=== PATIENT | female | born 1945 | race Caucasian/White ===

== ENCOUNTER → 2016-11-12 | Outpatient (CLI) | payer MEDICARE ==
--- NOTE | 2016-11-13 13:50 | MM ---
Reason for exam: screening (asymptomatic). Last mammogram was performed 1 year ago. History: Patient is postmenopausal. Took estrogen for 18 years beginning at age 42. Physical Findings: A clinical breast exam by your physician is recommended on an annual basis and results should be correlated with mammographic findings. MG Screening Mammo w CAD Bilateral CC and MLO view(s) were taken. Prior study comparison: November 09, 2015, bilateral MG screening mammo w CAD. November 03, 2014, bilateral MG screening mammo w CAD. Finding: There are typically benign calcifications in the left breast. No significant changes in finding since November 09, 2015 and November 03, 2014. ASSESSMENT: Benign, BI-RAD 2 RECOMMENDATION: Routine screening mammogram of both breasts in 1 year.
== END | disposition home or self-care (01) ==
LOC: RADMAMWWP 11:00
PROVIDERS: ATTEND Internal Medicine
DX: Z12.31 Encounter for screening mammogram for malignant neoplasm of breast (principal)

== ENCOUNTER → 2017-06-24 | Outpatient (CLI) | payer MEDICARE ==
--- NOTE | 2017-06-24 12:17 | US ---
EXAMINATION TYPE: US venous doppler duplex LE LT DATE OF EXAM: 06/24/2017 12:08 PM COMPARISON: NONE CLINICAL HISTORY: LLE Swelling M79.89. Pt states left leg swelling SIDE PERFORMED: Left TECHNIQUE: The lower extremity deep venous system is examined utilizing real time linear array sonog esme with graded compression, doppler sonography and color-flow sonography. VESSELS IMAGED: External Iliac Vein (EIV) Common Femoral Vein Deep Femoral Vein Greater Saphenous Vein * Femoral Vein Popliteal Vein Small Saphenous Vein * Proximal Calf Veins (* superficial vessels) Grayscale, color doppler, spectral doppler imaging performed of the deep veins of the lower extremity . There is normal flow, compressibility, vascular waveforms. Results called to Nancy at Dr's office at time of exam IMPRESSION: Left Leg: Negative for DVT
== END | disposition home or self-care (01) ==
LOC: RADUSWWP 11:51
PROVIDERS: ATTEND Internal Medicine
DX: M79.89 Other specified soft tissue disorders (principal)

== ENCOUNTER → 2017-12-10 | Outpatient (CLI) | payer MEDICARE ==
--- NOTE | 2017-12-10 11:28 | BD ---
EXAMINATION TYPE: Axial Bone Density DATE OF EXAM: 12/10/2017 COMPARISON: 11/09/2015 CLINICAL HISTORY: M85.80 Disorder of bone Height: 65.5 IN Weight: 135 LBS FRAX RISK QUESTIONS: History of Fracture in Adulthood: RT FOOT FX AGE 64, RT SHOULDER AGE 64 Secondary Osteoporosis: 3. Menopause before 45: YES AGE 42 RISK FACTORS HISTORY OF: Family History of Osteoporosis: YES MOTHER Active: YES Postmenopausal woman: AGE 42 Take estrogen and/or progesterone medications: NOT NOW How long: TOOK HORMONES FROM AGE 42 - 60 MEDICATIONS: Additional Medications: CALCIUM, VIT D,BLOOD PRESSURE, ATORVASTATIN, EXAM MEASUREMENTS: Bone mineral densitometry was performed using the [employer] System. Bone mineral density as measured about the Lumbar spine is: ----- L1-L4(G/cm2): 1.49 T Score Values are as follows: ----- L2: -0.8 ----- L3: 1.0 ----- L4: 0.8 ----- L1-L4: -0.3 Bone mineral density has: Decreased -4.8% since study of: 11/09/2015 Bone mineral density about the R hip (g/cm2): 0.781 Bone mineral density about the L hip (g/cm2): 0.835 T Score values are as follows: -----R Neck: -1.9 -----L Neck: -1.5 -----R Total: -1.1 -----L Total: -0.2 Bone mineral density has: Decreased -0.4% since study of: 11/09/2015 IMPRESSION: Osteopenia about the right femur. NOTE: T-SCORE=SD OF THE YOUNG ADULT MEAN.
--- NOTE | 2017-12-11 13:46 | MM ---
Reason for exam: screening (asymptomatic). Last mammogram was performed 1 year and 1 month ago. History: Patient is postmenopausal. Took estrogen for 18 years beginning at age 42. Physical Findings: A clinical breast exam by your physician is recommended on an annual basis and results should be correlated with mammographic findings. MG Screening Mammo w CAD Bilateral CC and MLO view(s) were taken. Prior study comparison: November 12, 2016, bilateral MG screening mammo w CAD. November 09, 2015, bilateral MG screening mammo w CAD. The breast tissue is heterogeneously dense. This may lower the sensitivity of mammography. There is no discrete abnormality. No significant changes when compared with prior studies. ASSESSMENT: Negative, BI-RAD 1 RECOMMENDATION: Routine screening mammogram of both breasts in 1 year.
== END | disposition home or self-care (01) ==
LOC: RADMAMWWP 10:11
PROVIDERS: ATTEND Internal Medicine
DX: Z12.31 Encounter for screening mammogram for malignant neoplasm of breast (principal); M85.851 Other specified disorders of bone density and structure, right thigh
CPT/HCPCS: 77067; 77080

== ENCOUNTER → 2019-02-11 | Outpatient (CLI) | payer MEDICARE ==
--- NOTE | 2019-02-11 13:33 | MM ---
Reason for exam: screening (asymptomatic). Last mammogram was performed 1 year and 2 months ago. History: Patient is postmenopausal. Took estrogen for 18 years beginning at age 42. Physical Findings: A clinical breast exam by your physician is recommended on an annual basis and results should be correlated with mammographic findings. MG Screening Mammo w CAD Bilateral CC and MLO view(s) were taken. Prior study comparison: December 10, 2017, bilateral MG screening mammo w CAD. November 12, 2016, bilateral MG screening mammo w CAD. The breast tissue is heterogeneously dense. This may lower the sensitivity of mammography. There are benign appearing vascular calcifications bilaterally. There is no discrete abnormality. ASSESSMENT: Benign, BI-RAD 2 RECOMMENDATION: Routine screening mammogram of both breasts in 1 year.
== END ==
LOC: RADMAMWWP 08:16
PROVIDERS: ATTEND Internal Medicine
DX: Z12.31 Encounter for screening mammogram for malignant neoplasm of breast (principal)
CPT/HCPCS: 77067

== ENCOUNTER → 2019-09-09 | Outpatient (CLI) | payer MEDICARE ==
--- NOTE | 2019-09-09 13:43 | BD ---
EXAMINATION TYPE: Axial Bone Density DATE OF EXAM: 09/09/2019 COMPARISON: 12.10.2017 CLINICAL HISTORY: 74 YR OLD FEMALE.....ICD-10 CODE: M89.9 DISORDER OF BONE Height: 65.2 Weight: 133 FRAX RISK QUESTIONS: History of Fracture in Adulthood: YES Secondary Osteoporosis: YES 3. Menopause before 45: YES RISK FACTORS HISTORY OF: HX OF HUMERAL FX, > AGE OF 49 Family History of Osteoporosis: YES, MOTHER, NO HIP FX Active: YES Postmenopausal woman: YES, AT AGE 42 YRS OLD, TOTAL HX Take estrogen and/or progesterone medications: IN PAST FOR 15 YRS Lost more than 2 inches in height since high school: YES Hyperparathyroidism: NO Adrenal Insufficiency: NO MEDICATIONS: Prednisone or other steroids: ON AND OFF FOR INJURIES, AND ILLNESS Additional Medications: PLANT BASED CALCIUM PRODUCT WITH VITAMIN D, BP MED, STATIN FOR CHOLESTEROL, M AGNESIUM Additional History: OSTEARTHRITIS, CHOLESTEROL, HYPERTENSION, SCOLIOSIS EXAM MEASUREMENTS: Bone mineral densitometry was performed using the [employer] System. Bone mineral density as measured about the Lumbar spine is: ----- L1-L4(G/cm2): 1.226 T Score Values are as follows: ----- L1: -2.3 ----- L2: -0.1 ----- L3: 2.3 ----- L4: 1.2 ----- L1-L4: 0.4 Bone mineral density has: Increased 7.3% since study of: 12.10.2017 Bone mineral density about the R hip (g/cm2): 0.877 Bone mineral density about the L hip (g/cm2): 0.696 T Score values are as follows: -----R Neck: -1.7 -----L Neck: -1.3 -----R Total: -1.0 -----L Total: -0.3 Bone mineral density has: NOT CHANGED 0.0% since study of: 12.10.2017 FRAX%s: THERE IS A 17.1% CHANCE FOR A MAJOR OSTEOPOROTIC FX AND A 3.9% FOR HIP.....PROBABILITY FOR FX IN 10 YRS TIME IMPRESSION: Osteopenia (T Score between -2.5 and -1). There is slightly increased risk of fracture and the patient may be considered for treatment. Re-Screen 2-5 years. NOTE: T-SCORE=SD OF THE YOUNG ADULT MEAN.
== END | disposition home or self-care (01) ==
LOC: RADBDWWP 12:29
PROVIDERS: ATTEND Internal Medicine
DX: M85.88 Other specified disorders of bone density and structure, other site (principal)
CPT/HCPCS: 77080

== ENCOUNTER → 2020-03-21 | Outpatient (CLI) | payer MEDICARE ==
--- NOTE | 2020-03-22 11:36 | MM ---
Reason for exam: screening (asymptomatic). Last mammogram was performed 1 year and 1 month ago. History: Patient is postmenopausal. Took estrogen for 18 years beginning at age 42. Physical Findings: A clinical breast exam by your physician is recommended on an annual basis and results should be correlated with mammographic findings. MG Screening Mammo w CAD Bilateral CC and MLO view(s) were taken. Prior study comparison: February 11, 2019, bilateral MG screening mammo w CAD. December 10, 2017, bilateral MG screening mammo w CAD. The breast tissue is heterogeneously dense. This may lower the sensitivity of mammography. Finding: There are typically benign vascular calcifications in the lower quadrant of the right breast. There is no discrete abnormality. ASSESSMENT: Negative, BI-RAD 1 RECOMMENDATION: Routine screening mammogram of both breasts in 1 year.
== END | disposition home or self-care (01) ==
LOC: RADMAMWWP 09:39
PROVIDERS: ATTEND Nurse Practitioner Adult Health
DX: Z12.31 Encounter for screening mammogram for malignant neoplasm of breast (principal)
CPT/HCPCS: 77067

== ENCOUNTER → 2021-04-11 | Outpatient (CLI) | payer MEDICARE ==
--- NOTE | 2021-04-11 13:33 | MM ---
Reason for exam: screening (asymptomatic). Last mammogram was performed 1 year and 1 month ago. History: Patient is postmenopausal. Took estrogen for 18 years beginning at age 42. Physical Findings: A clinical breast exam by your physician is recommended on an annual basis and results should be correlated with mammographic findings. MG Screening Mammo w CAD Bilateral CC and MLO view(s) were taken. Prior study comparison: March 21, 2020, bilateral MG screening mammo w CAD. February 11, 2019, bilateral MG screening mammo w CAD. December 10, 2017, bilateral MG screening mammo w CAD. The breast tissue is heterogeneously dense. This may lower the sensitivity of mammography. There are benign appearing vascular calcifications bilaterally. There is no discrete abnormality. ASSESSMENT: Benign, BI-RAD 2 RECOMMENDATION: Routine screening mammogram of both breasts in 1 year.
== END | disposition home or self-care (01) ==
LOC: RADMAMWWP 07:56
PROVIDERS: ATTEND Family Medicine
DX: Z12.31 Encounter for screening mammogram for malignant neoplasm of breast (principal); Z78.0 Asymptomatic menopausal state
CPT/HCPCS: 77067

== ENCOUNTER → 2021-10-08 | Outpatient (CLI) | payer MEDICARE ==
--- NOTE | 2021-10-08 16:31 | BD ---
EXAMINATION TYPE: Axial Bone Density DATE OF EXAM: 10/08/2021 COMPARISON: 09/09/2019 CLINICAL HISTORY: 76 years year old Female. ICD-10 CODE: M85.80 DISORDER OF BONE DENSITY Height: 65 IN Weight: 132 LBS FRAX RISK QUESTIONS: Alcohol (3 or more units per day): YES History of Fracture in Adulthood: TOE FX AGE 64; HUMERUS FX AGE 64 Secondary Osteoporosis: 3. Menopause before 45: YES AGE 42 TOTAL HYST RISK FACTORS HISTORY OF: Family History of Osteoporosis: YES MOTHER Active: YES Postmenopausal woman: TOTAL HYST AGE 42 Take estrogen and/or progesterone medications: NOT NOW How lon YEARS MEDICATIONS: Additional Medications: ALGAECAL ( PLANT BASED CALCIUM),VIT D3, BLOOD PRESSURE MEDS, ATORVASTATIN, AL LERGY MED, EXAM MEASUREMENTS: Bone mineral densitometry was performed using the [employer] System. Bone mineral density as measured about the Lumbar spine is: ----- L1-L4(G/cm2): 1.260 T Score Values are as follows: ----- L1: -2.2 ----- L2: 0.5 ----- L3: 2.7 ----- L4: 1.5 ----- L1-L4: 0.7 Bone mineral density has: Increased 3.8% since study of: 09/09/2019 Bone mineral density about the R hip (g/cm2): 0.800 Bone mineral density about the L hip (g/cm2): 0.883 T Score values are as follows: -----R Neck: -1.7 -----L Neck: -1.1 -----R Total: -0.9 -----L Total: -0.2 Bone mineral density has: Increased 1.5% since study of: 09/09/2019 FRAX%s: The graph provided illustrates a 22.0 chance for a major osteoporotic fx and a 6.4 chance for the hips probability for fx in 10 years time. IMPRESSION: Osteopenia (T Score between -2.5 and -1). There is slightly increased risk of fracture and the patient may be considered for treatment. Re-Screen 2-5 years. NOTE: T-SCORE=SD OF THE YOUNG ADULT MEAN.
== END | disposition home or self-care (01) ==
LOC: RADBDWWP 15:34
PROVIDERS: ATTEND Family Medicine
DX: M85.89 Other specified disorders of bone density and structure, multiple sites (principal); Z78.0 Asymptomatic menopausal state
CPT/HCPCS: 77080

== ENCOUNTER → 2022-04-15 | Outpatient (CLI) | payer MEDICARE ==
--- NOTE | 2022-04-15 10:36 | MM ---
Reason for Exam: Screening (asymptomatic). Last screening mammogram was performed 12 month(s) ago. Patient History: Menarche at age 13. First Full-Term at age 19. Left ovary removed at age 42. Right ovary removed at age 42. Hysterectomy at age 42. Postmenopausal. Estrogen for 18 years from age 42 until age 60. Risk Values: Natalie 5 year model risk: 1.4%. NCI Lifetime model risk: 2.5%. Prior Study Comparison: 02/11/2019 Bilateral Screening Mammogram, [facility]. 03/21/2020 Bilateral Screening Mammogram, [facility]. 04/11/2021 Bilateral Screening Mammogram, [facility]. Tissue Density: There are scattered fibroglandular densities. Findings: Analyzed By CAD. No suspicious groups of microcalcifications, spiculated or lobular masses, architectural distortion or other secondary signs of malignancy are mammographically apparent. Overall Assessment: Benign, BI-RAD 2 Management: Screening Mammogram of both breasts in 1 year. A negative mammogram report should not preclude additional follow up of suspicious palpable abnormalities. Patient should continue monthly self breast exam. A clinical breast exam by your physician is recommended on an annual basis and results should be correlated with mammographic findings. Electronically signed and approved by: Larry Norman D.O. Radiologis
== END | disposition home or self-care (01) ==
LOC: RADMAMWWP 06:57
PROVIDERS: ATTEND Family Medicine
DX: Z12.31 Encounter for screening mammogram for malignant neoplasm of breast (principal); Z78.0 Asymptomatic menopausal state
CPT/HCPCS: 77067

== ENCOUNTER → 2022-08-01 | Outpatient (CLI) | payer MEDICARE ==
--- NOTE | 2022-08-02 08:19 | US ---
EXAMINATION TYPE: US thyroid st tissue head/neck DATE OF EXAM: 08/01/2022 COMPARISON: NONE CLINICAL HISTORY: E04.1 THYROID NODULE. Patient states doctor felt a growth on thyroid. GLAND SIZE: Right Lobe: 4.5 x 1.4 x 1.9 cm Overall Parenchyma: homogenous Left Lobe: 4.4x 1.6 x 1.5 cm Overall Parenchyma: homogeneous Isthmus Thickness: 0.1 cm NODULES RIGHT: # of nodules measured on right: 0 LEFT: # of nodules measured on left: 0 ISTHMUS: # of nodules measured in the isthmus: 0 Bilateral neck scanned, no evidence of lymphadenopathy. IMPRESSION: 1. No thyroid ultrasound changes.
== END | disposition home or self-care (01) ==
LOC: RADUSWWP 16:27
PROVIDERS: ATTEND Otolaryngology
DX: E04.1 Nontoxic single thyroid nodule (principal)
CPT/HCPCS: 76536

== ENCOUNTER → 2023-10-15 | Outpatient (CLI) | payer MEDICARE ==
--- NOTE | 2023-10-15 14:35 | BD ---
EXAMINATION TYPE: Axial Bone Density DATE OF EXAM: 10/15/2023 CLINICAL HISTORY: 78 years old Female. ICD-10 CODE: M85.80 OSTEOPENIA Height: 65 in Weight: 135 lbs FRAX RISK QUESTIONS: History of Fracture in Adulthood: fx l1-l4 age 77 Secondary Osteoporosis: 3. Menopause before 45: total hysterectomy age 42 RISK FACTORS HISTORY OF: Spine Fracture: l1-l4 When: age 77 EXAM MEASUREMENTS: Bone mineral densitometry was performed using the [employer] System. l-spine fx age 77 Bone mineral density about the R hip (g/cm2): 0.898 Bone mineral density about the L hip (g/cm2): 0.968 T Score values are as follows: -----R Neck: -2.1 -----L Neck: -1.4 -----R Total: -0.9 -----L Total: -0.3 Z Score values are as follows: -----R Neck: 0.1 -----L Neck: 0.8 -----R Total: 1.1 -----L Total: 1.7 Bone mineral density has: Decreased -1.0% since study of: 10/08/2021 Bone mineral density about the L Wrist (g/cm2): 0.432 T Score values are as follows: -----Dist. R+U: -2.8 -----Prox. R+U: -3.3 -----Radius total: -4.0 Z Score values are as follows: -----Dist. R+U: -0.1 -----Prox. R+U: -0.6 -----Radius total: -1.3 Bone mineral density baseline FRAX%s: The graph provided illustrates a 21.7% chance for a major osteoporotic fx and a 6.3% chance f or the hips probability for fx in 10 years time. IMPRESSION: Osteoporosis (T Score less than -2.5). There is increased fracture risk and therapy is usually indicated based on age. Re-Screen 1-2 years. NOTE: T-SCORE=SD OF THE YOUNG ADULT MEAN.
== END | disposition home or self-care (01) ==
LOC: RADBDWWP 09:14
PROVIDERS: ATTEND Family Medicine
DX: M85.89 Other specified disorders of bone density and structure, multiple sites (principal); Z78.0 Asymptomatic menopausal state
CPT/HCPCS: 77080

== ENCOUNTER → 2024-12-29 | Outpatient (CLI) | payer MEDICARE ==
--- NOTE | 2024-12-29 15:16 | US ---
EXAMINATION TYPE: US thyroid st tissue head/neck DATE OF EXAM: 12/29/2024 COMPARISON: NONE CLINICAL INDICATION: Female, 79 years old with history of R22.2 LOCALIZED SWELLING, MASS AND LUMP, TR UNK; Lump superior to left clavicle x years, increases and decreases in size TECHNIQUE: Targeted ultrasound on the patient's left anterior shoulder and supraclavicular area of c oncern. FINDINGS AND IMPRESSION: Targeted scanning at the patient's area of concern shows no sonographic abn ormality. Clinical follow-up recommended. If any enlarging palpable area is detected, the patient barbara uld be rescanned. [facility], , 12/29/2024 3:13 PM
== END | disposition home or self-care (01) ==
LOC: RADUSWWP 14:51
PROVIDERS: ATTEND Family Medicine
DX: R22.2 Localized swelling, mass and lump, trunk (principal)
CPT/HCPCS: 76536